=== PATIENT | male | born 1950 | race Caucasian/White ===

== ENCOUNTER → 2018-10-02 | Outpatient (CLI) | payer OTHER ==
--- NOTE | 2018-10-02 13:53 | Diagnostic Imaging Report ---
PROCEDURE: CT chest and abdomen without contrast. TECHNIQUE: Axial images were obtained from the thoracic inlet through the iliac crest without the administration of intravenous contrast. INDICATION: Smoker and family history of abdominal aortic aneurysm. COMPARISON: No prior studies are available for comparison. FINDINGS: CT chest: No axillary lymphadenopathy is detected. Hilar and mediastinal evaluation is limited without intravenous contrast but no gross abnormality is seen. There are coronary arterial calcifications identified. The aorta appears to be normal in caliber. No pericardial or pleural fluid is identified. Lungs demonstrate some centrilobular emphysematous changes. No discrete mass, nodule or infiltrate is detected. IMPRESSION: Emphysematous changes. No thoracic lymphadenopathy or pulmonary mass is seen. There is no evidence of thoracic aortic aneurysm. CT abdomen: The abdominal aorta is calcified but normal caliber. No periaortic fluid collection is seen. No discrete liver mass is identified. The gallbladder is unremarkable. No biliary duct dilatation is seen. The pancreas and spleen are unremarkable. No adrenal mass is identified. Kidneys are without calculi or hydronephrosis. Moderate stool in the colon is seen. Bowel loops are normal caliber. There is no obstruction. There is no ascites. IMPRESSION: Unremarkable noncontrast CT of the abdomen. There is no evidence of an abdominal aortic aneurysm. Dictated by: Dictated on workstation # [id number]
== END ==
LOC: RAD 13:05
PROVIDERS: ATTEND Nurse Practitioner Family
DX: J43.9 Emphysema, unspecified (principal); F17.200 Nicotine dependence, unspecified, uncomplicated; Z82.49 Family history of ischemic heart disease and other diseases of the circulatory system
CPT/HCPCS: 71250; 74150

== ENCOUNTER 2018-12-14 12:41 | Emergency (ER) | payer OTHER, BC ==
[~2018-12-14] VITALS: Ht 170.2 cm; Wt 64.9 kg
[2018-12-14] MEDS ORDERED: CIPR-225 PO (13:11)
[2018-12-14] MEDS ORDERED: HYDR-4226 PO (13:11)
[2018-12-14] MEDS ORDERED: CEPH-507 PO (13:11)
--- NOTE | 2018-12-14 13:11 | ED Lower Extremity ---
General Chief Complaint: Laceration Stated Complaint: STEPPED ON NAIL W/ R FOOT Nursing Triage Note: PT REPORTS WORKING OUTSIDE AND STEPPING ON 2 INCH RUSTED NAIL. PT REPORTED THAT HIS FOOT WAS BLEEDING QUITE A BIT. PT AND REMOVED NAIL PRIOR TO ARRIVAL. Nursing Sepsis Screen: No Definite Risk Source: patient Exam Limitations: no limitations History of Present Illness Date Seen by Provider: Dec 14, 2018 Time Seen by Provider: 13:07 Initial Comments To ER per private vehicle with reports of a puncture wound to the plantar surface of the right foot. He was working outside when he stepped on a isis nail. Tetanus is not up-to-date. Onset: just prior to arrival Severity: moderate Pain/Injury Location: left foot Method of Injury: unknown Modifying Factors: Worse With Movement Allergies and Home Medications Allergies Coded Allergies: No Known Drug Allergies (Unverified , 12/14/18) Home Medications Cephalexin 500 Mg Capsule, 500 MG PO TID Prescribed by: FABIANA HERRING on 12/14/18 1311 Ciprofloxacin HCl 500 Mg Tablet, 500 MG PO BID Prescribed by: FABIANA HERRING on 12/14/18 1311 Hydrocodone/Acetaminophen 1 Each Tablet, 1 EACH PO Q6H PRN for PAIN-MODERATE Prescribed by: FABIANA HERRING on 12/14/18 1311 Patient Home Medication List Home Medication List Reviewed: Yes Review of Systems Constitutional: see HPI EENTM: see HPI Respiratory: no symptoms reported Cardiovascular: no symptoms reported Genitourinary: no symptoms reported Musculoskeletal: no symptoms reported Skin: see HPI Psychiatric/Neurological: No Symptoms Reported Past Tzqsnbo-Fcsdae-Bmqqur Hx Patient Social History Alcohol Use: Denies Use Recreational Drug Use: No Type Used: Electronic/Vapor Recent Foreign Travel: No Contact w/Someone Who Travel: No Recent Infectious Disease Expo: No Recent Hopitalizations: No Seasonal Allergies Seasonal Allergies: No Past Medical History Surgeries: Yes Tonsillectomy Respiratory: No Cardiac: Yes High Cholesterol, Hypertension Neurological: No Genitourinary: No Gastrointestinal: No Musculoskeletal: No Endocrine: No HEENT: Yes Cataract Cancer: No Psychosocial: No Integumentary: No Blood Disorders: No Physical Exam Vital Signs Vital Signs - First Documented 12/14/18 12:53 Temp 97.5 Pulse 69 Resp 16 B/P (MAP) 123/73 (90) Pulse Ox 100 Capillary Refill : Less Than 3 Seconds Height, Weight, BMI Height: 5'7.00" Weight: 143lbs. oz. [id number]; BMI Method:Stated General Appearance: WD/WN, no apparent distress HEENT: PERRL/EOMI, normal ENT inspection Respiratory: no respiratory distress, no accessory muscle use Hips: bilateral hip non-tender, bilateral hip normal inspection, bilateral hip normal range of motion Legs: bilateral leg non-tender, bilateral leg normal inspection, bilateral leg normal range of motion Knees: bilateral knee non-tender, bilateral knee normal inspection, bilateral knee normal range of motion Ankles: bilateral ankle non-tender, bilateral ankle normal inspection, bilateral ankle normal range of motion Feet: right foot other (puncture wound to the plantar surface of the right foot overlying the distal aspect of the fourth metatarsal. No hematoma surrounding this. No puncture wound to the dorsal surface of the foot.) Neurologic/Tendon: normal sensation, normal motor functions Neurologic/Psychiatric: alert, normal mood/affect, oriented x 3 Skin: normal color Progress/Results/Core Measures Results/Orders My Orders Orders - FABIANA HERRING APRN Dipht,Pertuss(Acell),Tet Adult (Boostrix (12/14/18 13:15) Cephalexin Capsule (Keflex Capsule) (12/14/18 13:15) Ciprofloxacin Tablet (Cipro Tablet) (12/14/18 13:15) Foot, Right, 3 View (12/14/18 13:14) Vital Signs/I&O 12/14/18 12:53 Temp 97.5 Pulse 69 Resp 16 B/P (MAP) 123/73 (90) Pulse Ox 100 Blood Pressure Mean: 90 Departure Communication (Admissions) 1309-we will cover him with Keflex and Cipro to cover for staph aureus and Pseudomonas, the most likely pathogens for plantar surface puncture wound to the foot. Pt refuses foot x ray Impression Primary Impression: Puncture wound of foot Qualified Codes: S91.331A - Puncture wound without foreign body, right foot, initial encounter Disposition: 01 HOME, SELF-CARE Condition: Stable Departure-Patient Inst. Decision time for Depature: 13:08 Referrals: NO,LOCAL PHYSICIAN (PCP) Primary Care Physician PETER CARBONE (Family) Primary Care Physician Patient Instructions: Wound Care Add. Discharge Instructions: 1. Return to ER for any concerns such as redness swelling fevers chills or anything else that may concern you. Follow-up with your primary care provider later this week for recheck. Antibiotics as directed. All discharge instructions reviewed with patient and/or family. Voiced understanding. Scripts Hydrocodone/Acetaminophen ([place] 5-325 Tablet) 1 Each Tablet 1 EACH PO Q6H PRN for PAIN-MODERATE MDD 10, #10 TAB Prov: FABIANA HERRING APRN 12/14/18 Ciprofloxacin HCl (Cipro) 500 Mg Tablet 500 MG PO BID, #10 TAB Prov: FABIANA HERRING DRAGLINE MECHANIC 12/14/18 Cephalexin (Keflex) 500 Mg Capsule 500 MG PO TID, #15 CAP Prov: FABIANA HERRING DRAGLINE MECHANIC 12/14/18 FABIANA HERRING APRN Dec 14, 2018 13:11
[2018-12-14] MEDS ORDERED: TETANUS,DIPTH,PERTUSS P/F (BOOSTRIX) 0.5 ML VIAL IM ONE (13:15)
[2018-12-14] MEDS ORDERED: CIPROFLOXACIN 500 MG (CIPRO) TABLET PO SCH (13:15)
[2018-12-14] MEDS ORDERED: CEPHALEXIN 250 MG (KEFLEX) CAP PO ONE (13:15)
[2018-12-14 13:40] VITALS: BP 123/73
--- OUTSIDE RECORDS SUMMARY | 2018-12-14 15:43 | XMS REPORT | Continuity of Care Document ---
Author Author [facility] Organization [facility] Address Unknown Phone Unavailable Allergies There is no data. Medications There is no data. Problems Date Dx Coded Attending Type Code Diagnosis Diagnosed By 01/31/2016 MELANY BISHOP DO Ot 433.10 CAROTID ARTERY OCCLUSION W O CEREBRAL IN 01/31/2016 MELANY BISHOP DO Ot 440.0 AORTIC ATHEROSCLEROSIS 01/31/2016 MELANY BISHOP DO Ot 440.20 ATHEROSCLEROSIS BURNS PAIUTE ARTERIES EXTREMIT 01/31/2016 MELANY BISHOP DO Ot 433.10 CAROTID ARTERY OCCLUSION W O CEREBRAL IN 01/31/2016 MELANY BISHOP DO Ot 440.0 AORTIC ATHEROSCLEROSIS 01/31/2016 MELANY BISHOP DO Ot 440.20 ATHEROSCLEROSIS BURNS PAIUTE ARTERIES EXTREMIT 09/30/2018 MELANY BISHOP DO Ot 433.10 CAROTID ARTERY OCCLUSION W O CEREBRAL IN 09/30/2018 MELANY BISHOP DO Ot 440.0 AORTIC ATHEROSCLEROSIS 09/30/2018 MELANY BISHOP DO Ot 440.20 ATHEROSCLEROSIS BURNS PAIUTE ARTERIES EXTREMIT 10/02/2018 MELANY BISHOP DO Ot 433.10 CAROTID ARTERY OCCLUSION W O CEREBRAL IN 10/02/2018 MELANY BISHOP DO Ot 440.0 AORTIC ATHEROSCLEROSIS 10/02/2018 MELANY BISHOP DO Ot 440.20 ATHEROSCLEROSIS BURNS PAIUTE ARTERIES EXTREMIT 10/03/2018 ERNESTO CHILD Ot F17.200 NICOTINE DEPENDENCE, UNSPECIFIED, UNCOMP 10/03/2018 ERNESTO CHILD Ot J43.9 EMPHYSEMA, UNSPECIFIED 10/03/2018 ERNESTO CHILD Ot Z82.49 FAMILY HX OF ISCHEM HEART DIS AND OTH DI 11/10/2018 ERNESTO CHILD Ot F17.200 NICOTINE DEPENDENCE, UNSPECIFIED, UNCOMP 11/10/2018 ERNESTO CHILD Ot J43.9 EMPHYSEMA, UNSPECIFIED 11/10/2018 ERNESTO CHILD Ot Z82.49 FAMILY HX OF ISCHEM HEART DIS AND OTH DI Procedures There is no data. Results There is no data. Encounters ACCT No. Visit Date/Time Discharge Status Pt. Type Provider Facility Loc./Unit Complaint [id number] 10/02/2018 13:05:00 10/02/2018 23:59:59 CLS Outpatient ERNESTO CHILD [facility] HX SMOKER,FAMILY HX AAA [id number] 06/02/2015 11:27:00 06/02/2015 23:59:59 CLS Outpatient MELANY BISHOP DO [facility] TIA
== END 2018-12-14 13:41 | disposition home or self-care (01) ==
LOC: EDUNIT# 12:41 → ER 12:43
DX: S91.331A Puncture wound without foreign body, right foot, initial encounter (principal); E78.00 Pure hypercholesterolemia, unspecified; I10 Essential (primary) hypertension; Z23 Encounter for immunization; Z90.89 Acquired absence of other organs; W45.0XXA Nail entering through skin, initial encounter
CPT/HCPCS: 90471; 90715

== ENCOUNTER → 2021-09-18 | Outpatient (CLI) | payer OTHER ==
[~2021-09-18] MED LIST: CATHETER FLUSH 10 ML SYR IV PRN; CEPH-507 PO; CIPR-225 PO; HOLD METFORMIN - RECEIVED CONTRAST 20 ML VIAL IV SCH; HYDR-4226 PO; IOHEXOL 350 MG/ML 100 ML (OMNIPAQUE 350) VIAL IV ONE; NS 100 ML (IVPB) BAG IV ONE
--- NOTE | 2021-09-18 11:52 | Diagnostic Imaging Report ---
INDICATION: Abdominal aortic aneurysm, followup. Correlation is made with prior CT from 10/02/2018. The thoracic aorta is normal caliber. No dissection is identified. The abdominal aorta is normal caliber as well without evidence of aneurysm. 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 The dissection is a short segment does not extend into the iliacs. No periaortic fluid collections are seen. No pericardial or pleural fluid is identified. The lungs demonstrate centrilobular emphysematous changes. No discrete mass or fluid collection is identified. The liver demonstrates diffuse low density consistent with hepatic steatosis. Gallbladder contains a small stone. There is no biliary ductal dilatation. The pancreas and spleen are unremarkable. No adrenal mass is detected. Kidneys are unremarkable. Bowel loops are normal caliber. There is no ascites. There does appear to be diverticulosis of the descending colon. IMPRESSION: 1. No evidence of thoracic or abdominal aortic aneurysm. 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 2. Centrilobular emphysematous changes throughout both lungs. 3. Hepatic steatosis. 4. Cholelithiasis. 5. Uncomplicated diverticulosis. Dictated by: Dictated on workstation # [id number]
== END ==
LOC: RAD 10:15
PROVIDERS: ATTEND Hospitalist
DX: K76.0 Fatty (change of) liver, not elsewhere classified (principal); K80.20 Calculus of gallbladder without cholecystitis without obstruction; K57.30 Diverticulosis of large intestine without perforation or abscess without bleeding; J43.2 Centrilobular emphysema; I71.02 Dissection of abdominal aorta
CPT/HCPCS: 74150; 75635

== ENCOUNTER 2022-12-18 12:34 | Emergency (ER) | payer OTHER ==
[~2022-12-18] VITALS: Ht 170.2 cm; Wt 68.9 kg
[~2022-12-18 12:34] MED LIST changes: -CATHETER FLUSH 10 ML SYR IV PRN; -HOLD METFORMIN - RECEIVED CONTRAST 20 ML VIAL IV SCH; -IOHEXOL 350 MG/ML 100 ML (OMNIPAQUE 350) VIAL IV ONE; -NS 100 ML (IVPB) BAG IV ONE
--- NOTE | 2022-12-18 13:19 | ED Cardiac General ---
History of Present Illness General Chief Complaint: Cardiac/General Problems Stated Complaint: HIGH BLOOD PRESSURE Nursing Triage Note: PT AMB TO TRIAGE WITH COMPLAINT OF HIGH BLOOD PRESSURE. STATES BP AT HOME HAS BEEN IN THE 170s. STATES TODAY IT WAS 191/101. WAS TOLD BY PCP TO COME TO ER. PT STATES HE HAS HAD BLURRY VISION AND MILD HEADACHES OVER THE LAST TWO WEEKS. Source: patient, [facility] Exam Limitations: no limitations History of Present Illness Date Seen by Provider: Dec 18, 2022 Time Seen by Provider: 13:00 Initial Comments This 72-year-old gentleman presents to the emergency room with complaints of hypertension exacerbation. He reports blood pressure up to 191/101. Systolic blood pressure here is in the 170s. He has symptoms of mildly blurry vision and headache over the past 2 weeks. A couple weeks ago [facility] was [facility] and noted his blood pressure to be in the 160s. He forgot to address this with the provider before leaving. He does not have another appointment again until February. He does not have a local provider. He is presently taking losartan 25 mg daily. He also takes diltiazem ER 120 mg daily. He is not sure why he is on diltiazem. He denies any known history of cardiac arrhythmia. Allergies and Home Medications Allergies Coded Allergies: No Known Drug Allergies (Unverified , 12/14/18) Patient Home Medication List Home Medication List Reviewed: Yes Cephalexin (Keflex) 500 Mg Capsule, 500 MG PO TID Prescribed by: FABIANA HERRING on 12/14/18 1311 Ciprofloxacin HCl (Cipro) 500 Mg Tablet, 500 MG PO BID Prescribed by: FABIANA HERRING on 12/14/18 1311 Hydrocodone/Acetaminophen (Hydrocodone/Acetaminophen 5 MG/325 MG TAB) 1 Each Tablet, 1 EACH PO Q6H PRN for PAIN-MODERATE Prescribed by: FABIANA HERRING on 12/14/18 1311 Review of Systems Review of Systems Constitutional: no symptoms reported EENTM: See HPI, Blurred Vision Respiratory: No Symptoms Reported Cardiovascular: No Symptoms Reported Gastrointestinal: No Symptoms Reported Genitourinary: No Symptoms Reported Musculoskeletal: no symptoms reported Skin: no symptoms reported Psychiatric/Neurological: See HPI, Headache Endocrine: No Symptoms Reported Hematologic/Lymphatic: No Symptoms Reported Past Spodpbc-Ibkaup-Jxxggo Hx Patient Social History Tobacco Use?: No Smoking Status: Former Smoker Use of E-Cig and/or Vaping dev: Yes Substance use?: No Alcohol Use?: No Pt feels they are or have been: No Seasonal Allergies Seasonal Allergies: No Past Medical History Surgeries: Yes Tonsillectomy Respiratory: No Cardiac: Yes High Cholesterol, Hypertension Neurological: No Genitourinary: No Gastrointestinal: No Musculoskeletal: No Endocrine: No HEENT: Yes Cataract Cancer: No Psychosocial: No Integumentary: No Blood Disorders: No Physical Exam Vital Signs Vital Signs - First Documented 12/18/22 12:43 Pulse 77 Resp 16 B/P (MAP) 172/85 (114) Pulse Ox 99 O2 Delivery Room Air Capillary Refill : Less Than 3 Seconds Height, Weight, BMI Height: 5'7.00" Weight: 143lbs. oz. [id number]; 23.00 BMI Method:Stated General Appearance: No Apparent Distress, WD/WN HEENT: PERRL/EOMI, Normal ENT Inspection Neck: Normal Inspection; No JVD Respiratory: Lungs Clear, Normal Breath Sounds, No Accessory Muscle Use Cardiovascular: Regular Rate, Rhythm, No Edema, No Murmur Gastrointestinal: Non Tender, Soft Extremity: Normal Inspection, No Pedal Edema Neurologic/Psychiatric: Alert, Oriented x3, No Motor/Sensory Deficits, Normal Mood/Affect Progress/Results/Core Measures Results/Orders Lab Results Laboratory Tests Test 12/18/22 13:20 Range/Units Sodium Level 141 135-145 MMOL/L Potassium Level 4.2 3.6-5.0 MMOL/L Chloride Level 105 98-107 MMOL/L Carbon Dioxide Level 26 21-32 MMOL/L Anion Gap 10 5-14 MMOL/L Blood Urea Nitrogen 13 7-18 MG/DL Creatinine 1.18 0.60-1.30 MG/DL Estimat Glomerular Filtration Rate 65 BUN/Creatinine Ratio 11 Glucose Level 102 70-105 MG/DL Calcium Level 9.4 8.5-10.1 MG/DL Thyroid Stimulating Hormone (TSH) 0.73 0.35-4.94 UIU/ML Free Thyroxine 0.84 0.70-1.48 NG/DL My Orders Orders - OMAIRA WONG MD Basic Metabolic Panel (12/18/22 13:11) Thyroid Stimulating Hormone (12/18/22 13:11) Free T4 (Free Thyroxine) (3/28/23 13:11) Vital Signs/I&O 12/18/22 12/18/22 12:43 15:14 Pulse 77 71 Resp 16 19 B/P (MAP) 172/85 (114) 164/84 Pulse Ox 99 97 O2 Delivery Room Air Room Air Blood Pressure Mean: 114 Progress Progress Note : Progress Note BMP and thyroid studies were obtained. They were reviewed by me and were unremarkable. Medications were reviewed. Patient is presently taking losartan 25 mg daily. I have given him instructions for titrating this up to increase dosing until blood pressure improves. He is then to keep his follow-up appointment in February and discuss further blood pressure management. I also asked him to discuss diltiazem. In the absence of rhythm pathology, there are probably better alternatives for managing his blood pressure. Blood pressure did trend down some prior to discharge and was acceptable at the time of dismissal. See discharge instructions for further discussion. Departure Impression Primary Impression: Hypertension Qualified Codes: I10 - Essential (primary) hypertension Disposition: HOME, SELF-CARE Condition: Stable Departure-Patient Inst. Decision time for Depature: 15:02 Referrals: KAVITHA LOPEZ DO (PCP/Family) Primary Care Physician Patient Instructions: High Blood Pressure in Adults Add. Discharge Instructions: Your labs in the emergency room were unremarkable. You may titrate up on your losartan blood pressure medication while you are waiting for your follow-up appointment at the [place] clinic. Your goal systolic blood pressure (top number) is 140 or below. You may continue titrating up on losartan until you achieve that goal with a maximum dose of 100 mg a day. Start with losartan 25 mg twice daily. If you do not achieve 140 or below with the majority of your systolic blood pressures, then increase to losartan 50 mg in the morning and 25 mg in the evening after 2 to 3 weeks. If you still do not reach the target systolic blood pressure of 140, then increase to the maximum dose of losartan 50 mg in the morning and 50 mg in the evening. Plan ahead for obtaining refills with this increased dosing. You may need to contact your primary care provider for an additional prescription of losartan to ensure you have enough supply for this titration. If you have worsening symptoms despite following these instructions, return to care. Avoid consuming things that may exacerbate your high blood pressure such as excessive salt, stimulants such as caffeine, diet pills, workout supplements, decongestant medications, medications for ADHD/ADD, etc. Call your doctor with questions or concerns. At your follow-up appointment inquire of your doctor why you are taking diltiazem. This medication is generally used for patients who have heart rhythm problems rather than as a blood pressure control medication. Work toward quitting vaping. All discharge instructions reviewed with patient and/or family. Voiced understanding. OMAIRA WONG MD Dec 18, 2022 13:19
[2022-12-18 13:37] LABS: POTASSIUM 4.2 MMOL/L (3.6-5.0)
[2022-12-18 13:38] LABS: CALCIUM 9.4 MG/DL (8.5-10.1)
[2022-12-18 13:42] LABS: CREATININE SERUM 1.18 MG/DL (0.60-1.30)
[2022-12-18 14:05] LABS: FREE T4 (FREE THYROXINE) 0.84 NG/DL (0.70-1.48)
[2022-12-18 15:14] VITALS: BP 164/84
== END 2022-12-18 15:14 | disposition home or self-care (01) ==
LOC: EDUNIT# 12:34 → ER 12:37
DX: I10 Essential (primary) hypertension (principal); Z87.891 Personal history of nicotine dependence
CPT/HCPCS: 36415; 80048; 84439; 84443; 99281